=== PATIENT | male | born 1960 | race Caucasian/White ===

== ENCOUNTER 2017-10-11 12:07 | Outpatient (CLI) | payer MEDICARE ==
--- NOTE | 2017-10-12 14:06 | CT ---
CT HEAD WITHOUT CONTRAST: Date: 10/11/17 COMPARISON: 05/02/17. HISTORY: Headache. TECHNIQUE: Serial axial CT imaging is obtained at 5 mm intervals from skull base through vertex without contrast . FINDINGS: The patient is status post craniotomy in the right frontal region. There are numerous intracranial me tallic clips in the right frontal region with associated significant encephalomalacia within the righ t frontal region superomedially. These postoperative changes and associated encephalomalacia do not a ppear significantly changed when compared to 05/02/17 and 10/14/16 CT examination. There is an area of asymmetric mixed attenuation superior and medial to the superior horn of the righ t lateral ventricle, measuring in the 2.0 cm range, not definitively visualized on prior imaging. There is a lesion near the vertex posteromedially on the left, best seen on image 23, which is hypode nse, with peripheral linear hyperdensities suggesting calcification. This lesion measures I the 1.6 c m range. There is a posterior hypodense lesion within the parietal region on the right on image 17 me asuring in the 9.0 mm range, not definitely visualized on the prior exam. There is a vague area of hy perdensity within the posterior left parietal region on axial image 18 measuring in the 1.2 cm range, not discretely visualized on prior imaging either. There are vague areas of hypodensity within the bilateral cerebellar hemispheres posterior and latera l to the mid portion of the fourth ventricle, new when compared to the prior examination. Just inferi or to this are punctate foci of hyperdensity. These may represent intracranial posterior fossa lesion s with associated edema. There is no ventriculomegaly. There is no intracranial hemorrhage seen. IMPRESSION: Multiple intra-axial lesions, demonstrating areas of calcification, as well as hypodensity. These are seen both infratentorial and supratentorial. Recommend further evaluation via CT with and without co ntrast. This is suspicious for possible intracranial metastatic disease. Concern for metastatic disease called to Dr. Hayder Donato at 1040 hours on 10/11/17. CODE CR. POS: [facility]
== END 2017-10-11 12:08 | disposition home or self-care (01) ==
LOC: CT 12:07
PROVIDERS: ATTEND Student in an Organized Health Care Education/Training Program
DX: G40.409 Other generalized epilepsy and epileptic syndromes, not intractable, without status epilepticus (principal); R51 Headache; G93.89 Other specified disorders of brain; Z87.74 Personal history of (corrected) congenital malformations of heart and circulatory system
CPT/HCPCS: 70450

== ENCOUNTER 2017-10-13 07:45 | Outpatient (CLI) | payer MEDICARE ==
[2017-10-13] MEDS ORDERED: Iopamidol 370 76% 100 ML VIAL ONE (11:33)
--- NOTE | 2017-10-13 12:03 | CT ---
CT OF HEAD WITH AND WITHOUT CONTRAST: Date: 10/13/17 CLINICAL HISTORY: Intracranial lesions, incompletely evaluated on noncontrast head CT. Imaging follow-up. Reference made to head CT two days prior. FINDINGS: There are numerous rim-enhancing intra-axial lesions involving the supratentorial and infratentorial brain. Surrounding areas of vasogenic edema are present involving each cerebral hemisphere of the reza ateral cerebellar hemispheres. Dominant right hemispheric lesion at the posterior right centrum semio kathleen measures a diameter of approximately 18.0 mm. Dominant left hemispheric lesion, located medially within the posterior left parietal lobe, measures 2.1 cm in diameter. Dominant cerebellar lesion, lo cated within left hemisphere, demonstrates a diameter of approximately 19.0 mm. There is no significa nt midline shift. Ventricular system is normal in size. Redemonstration of postsurgical encephalomala rain with metallic clips at the right frontal region. IMPRESSION: Extensive intracranial necrotic appearing metastatic lesions involving supratentorial and infratentor ial brain with associated vasogenic edema. Findings were telephoned to Dr. Donato at 1000 hours, 10/13/2017. POS: [facility]
--- NOTE | 2017-10-13 12:24 | CT ---
CT CHEST AND ABDOMEN AND PELVIS WITH CONTRAST: INDICATIONS: History of pulmonary nodules. Intracranial metastases. Headaches. FINDINGS: The previous described nodule involving the posterior aspect of the left upper lobe has enlarged. It demonstrates spiculated margins and a diameter of 4.8 cm. There is surrounding ground glass opacity . There is punctate subpleural nodularity of the posterior medial left lower lobe, subcentimeter in size. Pulmonary emphysema is present. There is a nonspecific curvilinear density with internal luce ncy at the posterior right lower lobe and an additional focal circumscribed lucency, which may relate to a focal component of emphysema or other cause for bleb formation. There are numerous hypodensiti es throughout the liver, too small to further characterize. There is a focal filling defect of the i nfrahepatic IVC, indicating tumor thrombus. Bilateral adrenal metastases are present. There is evid ence of cyst formation of the right kidney. Nonspecific hypoattenuation with associated volume loss is seen at the lower pole of the left kidney. A small hypodensity of the spleen is too small to furt her characterize. No acute pancreatic pathology. There is streak artifact from spinal hardware, whi ch does limit assessment of the abdomen. No bowel obstruction. No free air. Scattered vascular dis ease is present. There is moderate retained fecal material in the colon. 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 A component of these hypodensities were demonstrated on the preceding chest CT, although all cannot be confirmed as present on prior exam. POS: [facility]
== END 2017-10-13 07:46 | disposition home or self-care (01) ==
LOC: CT 07:45
PROVIDERS: ATTEND Student in an Organized Health Care Education/Training Program
DX: R93.0 Abnormal findings on diagnostic imaging of skull and head, not elsewhere classified (principal); C34.12 Malignant neoplasm of upper lobe, left bronchus or lung; C79.72 Secondary malignant neoplasm of left adrenal gland; C79.71 Secondary malignant neoplasm of right adrenal gland
CPT/HCPCS: 70470; 71260; 74177

== ENCOUNTER 2017-10-13 11:51 | Emergency (ER) | payer MEDICARE ==
[2017-10-13] MEDS ORDERED: Dexamethasone 10 MG/ML VIAL ONE (14:24)
--- NOTE | 2017-10-13 20:36 | CON ---
This is Napoleon Anderson PA-C, dictating for Dr. Luiz Newell. DATE OF CONSULTATION: 10/13/2017 This is a 50-minute initial patient consult, in which greater than 50% of the exam was spent in couns eling and coordinating the patient's care. The remainder of the exam was spent in review of the bao ent's medical record and review of appropriate imaging studies. CHIEF COMPLAINT: Headache with generalized weakness and some visual difficulties for the past 3-4 we eks. HISTORY OF PRESENT ILLNESS: Mr. Powell is a 57-year-old male who presents to [facility] with the direction of his neurologist, Dr. Hayder Donato. Apparently, there was a head CT obtained with and without contrast of the brain that showed some abnormalities. In regards to patient's histo ry, Dr. Donato was managing him for seizure disorder as well as AVM resection roughly in the year 1999. Over the past 3-4 weeks, the patient has noticed bilateral frontal area headaches that are sensitiv e to noise, but not necessarily light. He has chronic dizziness and is minimally ambulatory due to r ight hip replacement about a year ago. The patient has been a life-long smoker and continues to smok e 2 packs per day. Review of the patient's head CT shows multiple metastatic lesions throughout the entire brain. Neurosurgery was asked to consult regarding these. PHYSICAL EXAMINATION: The patient is awake, alert and appropriate. He does provide the majority of the history, although his and daughters were at bedside, also helped to provide history. His GC S currently is 15 and he follows commands in all 4 extremities. Strength testing of the right lower extremity is significantly limited due to the patient previous hip surgery. He is currently in a whe elchair and states he uses this most of the time at home, though he is able to walk with a walker to the bathroom when at home. He has significant give-way weakness throughout the entire right lower ex tremity. Although, he is able to wiggle his toes and have some antigravity functioning in the right lower extremity. He has no pronator drift. He is oriented x3. He does smoke cigarettes. IMPRESSION: 1. Tobacco abuse with metastatic brain lesions, likely lung cancer. 2. Headache, some visual difficulties and generalized weakness. PLAN: I have discussed the patient's case with Dr. Newell. At this time, the patient does not requi re neurosurgical intervention. His states that he would benefit more from radiation and perhaps chemotherapy at the direction of Oncology. I have discussed this with the ER provider, nurse Kristie rodriguez and she has set up an appointment for the patient next week to see Oncology on an outpa tient basis. The patient will be stable for discharge from a neurosurgical standpoint. We did discu ss that the patient should probably be on some type of steroid, although he does have a history of bl eeding ulcer. We have suggested that he be discharged home with Decadron 2 mg b.i.d. as well as Prot ant or Pepcid. I discussed this in great detail with the patient's family, so they have multiple qu estions regarding the patient's cancer and prognosis and did let them know that these are best direct ed towards Oncology. There are very pleased at this time that he does not require a neurosurgical in tervention and understands that he needs medical treatment regards to his brain lesions. At this carri e, there is no need for neurosurgical follow up, but the patient and his family know to call our offi ce with questions or concerns. He will remain on Trileptal for seizure control and it should be note d that the patient's seizures significantly can be controlled with the Trileptal. The last seizure w as in 06/2017. Again, he will continue to follow up with Dr. Donato as directed. Please call with any questions, otherwise Neurosurgery will sign off.
== END 2017-10-13 16:19 | disposition home or self-care (01) ==
LOC: ERS 11:51
DX: G93.9 Disorder of brain, unspecified (principal); J44.9 Chronic obstructive pulmonary disease, unspecified; F17.210 Nicotine dependence, cigarettes, uncomplicated
CPT/HCPCS: 70470; 71260; 74177; 96374; J1100

== ENCOUNTER 2017-10-20 08:57 | Outpatient (CLI) | payer MEDICARE ==
--- NOTE | 2017-10-20 10:31 | RAD ---
PA AND LATERAL CHEST: Indication: History of dyspnea. Comparison: CT of the chest, abdomen and pelvis 10-13-17. FINDINGS: The left upper lobe mass is not appreciably changed from the comparison. Chronic lung changes are sim ilar. Mild cardiomegaly is similar. No acute osseous abnormality is evident. IMPRESSION: Stable left upper lobe lung mass. POS: [facility]
== END 2017-10-20 08:58 | disposition home or self-care (01) ==
LOC: RAD 08:57
PROVIDERS: ATTEND Internal Medicine Pulmonary Disease
DX: R06.00 Dyspnea, unspecified (principal); R91.8 Other nonspecific abnormal finding of lung field
CPT/HCPCS: 71020